=== PATIENT | male | born 1945 | race Caucasian/White ===

== ENCOUNTER 2021-06-30 10:34 | Emergency (ER) | payer OTHER, SELFPAY ==
[2021-06-30] VITALS (22 sets, daily range): BP systolic 142–179; BP diastolic 78–111; PULSE 84–114; RESP 12–25; TEMP 36.9; O2SAT 92–99
--- NOTE | ~2021-06-30 | XR_ITS ---
EXAMINATION: XR chest 2V DATE: 06/30/2021 10:47 INDICATION: 2 months of chest pain TECHNIQUE: PA and lateral views of the chest were obtained. COMPARISON: None FINDINGS: Negligible streaky atelectasis at the lingula. No other airspace opacities, pulmonary edema, pleural effusion or pneumothorax. The cardiomediastinal silhouette is normal. Mild to moderate thoracic spond ylosis. IMPRESSION: 1. Negligible lingular atelectasis. No other acute cardiopulmonary disease. Reviewed, dictated and finalized at location A.
--- NOTE | 2021-06-30 10:35 | ECG_ITS ---
Measurements Intervals [place] Rate: 81 P: 43 [place]: 160 QRS: 15 QRSD: 94 T: 29 QT: 354 QTc: 413 Interpretive Statements SINUS RHYTHM MINIMAL Q WAVES- INFERIOR LEADS BORDERLINE ECG Electronically Signed On 06-30-2021 11:11:51 CDT by Gonzalo Irvin D.O.
[2021-06-30 11:26] LABS: Basophils Percent Auto 0.5 % (0.2-1.2); Eosinophils Absolute Auto 0.1 K/mm3 (0-0.3); Eosinophils Percent Auto 1.3 % (0-4.4); Hematocrit 50.2 % (42.0-52.0); Hemoglobin 16.3 g/dL (14.0-18.0); Immature Granulocyte Absolute 0.04 K/mm3 (0.00-0.031); Immature Granulocyte Percent A 0.5 % (0-0.5); Lymphocytes Absolute Auto 1.68 K/mm3 (0.9-3.2); Lymphocytes Percent Auto 19.5 % (18.3-44.2); Mean Corpuscular HGB Conc 32.5 g/dl (32-36); Mean Corpuscular Hemoglobin 29.7 pg (26-34); Mean Corpuscular Volume 91.6 fl (80-100); Mean Platelet Volume 10.2 fl (7.4-10.4); Monocytes Absolute Auto 0.9 K/mm3 (0.1-0.6); Monocytes Percent Auto 10.2 % (2.6-8.5); Neutrophils Absolute Auto 5.9 K/mm3 (1.3-6.7); Platelet Count Result 206 k/mm3 (150-375); Red Blood Count 5.48 M/mm3 (4.6-6.20); Red Cell Distribution Width 13.1 % (11.5-14.5); White Blood Count 8.6 K/mm3 (4.5-10.0)
[2021-06-30 11:35] LABS: INR 0.9; Prothrombin Time 12.3 Seconds (11.1-14.7)
[2021-06-30 11:36] LABS: Partial Thromboplastin Time 26.4 SECONDS (22.3-36.8)
[2021-06-30 11:47] LABS: Anion Gap 9 mmol/L (8-16); Blood Urea Nitrogen 22 mg/dL (9-20); Calcium 9.3 mg/dL (8.4-10.2); Carbon Dioxide 26 mmol/L (22-30); Chloride 103 mmol/L (98-107); Estimated CRCL calculation 78 ml/min; Estimated Glomerular Filt Rate > 60; Glucose 101 mg/dL (65-110); Potassium 4.1 mmol/L (3.4-5.0); Sodium 138 mmol/L (137-145)
--- NOTE | 2021-06-30 12:00 | ED.CHESTPAIN ---
HPI - Chest Pain General Chief Complaint: Chest Pain Stated Complaint: SOB, CHEST TIGHTNESS Time Seen by Provider: 06/30/21 12:00 History of Present Illness HPI narrative: 75 yo male presents to the ED c/o shortness of breath. He reports that this started more than one month ago, but has only become significant recently. This is associated with chest tightness, orthopnea. No pain. No cough, congestion, fever, nausea, vomiting. This started after getting the Moderna vaccine for COVID-19. Related Data Allergies Allergy/AdvReac Type Severity Reaction Status Date / Time NA Allergy Unknown Uncoded 06/30/21 10:41 NONE Allergy Unknown Uncoded 04/24/03 13:12 Review of Systems Review of Systems: All systems reviewed & are unremarkable except as noted in HPI and below Constitutional: Constitutional: Denies chills Eyes: Eyes: Reports no additional eye complaints ENT: Reports system reviewed and no additional complaints, except as documented Cardiovascular: Cardiovascular: Denies chest pain and Denies leg edema Respiratory: Respiratory: Reports as per HPI Gastrointestinal: Gastrointestinal: Reports no additional gastrointestinal complaints Musculoskeletal: Musculoskeletal: Denies back pain Neurologic: Reports system reviewed and no additional complaints, except as documented [facility] Social History Social History Smoking status: Never smoker Alcohol intake: never Substance use: never Gender identity (if verbalized by the patient): Male Course Vital Signs Vital signs: Vital Signs Temperature 36.9 C 06/30/21 11:00 Pulse Rate 90 06/30/21 11:00 Respiratory Rate 20 06/30/21 11:00 Blood Pressure 179/111 H 06/30/21 11:00 Pulse Oximetry 97 06/30/21 11:00 Temperature 36.9 C 06/30/21 11:00 Pulse Rate 93 06/30/21 14:21 Respiratory Rate 20 06/30/21 14:21 Blood Pressure 142/98 H 06/30/21 14:21 Pulse Oximetry 92 06/30/21 14:21 MDM - Chest Pain MDM Narrative Medical decision making narrative: He has minimal elevated troponin, flat at 3 hours. Given that symptoms have been ongoing for a long time and he has no chest pain this is unlikely to represent an acute event. He has wheezing and reports significant symptom improvement with nebulizer treatment. Pointing to a pulmonary source for his symptoms. CXR negative for pneumonia. D-dimer normal. Elevated troponin is likely the result of untreated hypertension. Discussed with cardiology. They agree that he is not likely to benefit from hospitalization at this time. They will contact him for outpatient follow up. His PCP was contacted and agrees with the plan. She would like me to start him on and KAVIN-I for his BP. Differential Diagnosis Differential diagnosis: Likely stable angina, unstable angina pectoris, st elevation myocardial infarction, chest pain and other (pneumonia, COVID, asthma, COPD, PE) Medical Records Data Attestation: I reviewed the patient's medical records. Lab Data Attestation: I reviewed the patient's lab results. Result diagrams: 06/30/21 11:06 06/30/21 11:06 Labs: Lab Results 06/30/21 06/30/21 06/30/21 Range/Units 11:06 11:06 11:06 WBC 8.6 (4.5-10.0) K/mm3 RBC 5.48 (4.6-6.20) M/mm3 Hgb 16.3 (14.0-18.0) g/dL Hct 50.2 (42.0-52.0) % MCV 91.6 (80-100) fl MCH 29.7 (26-34) pg MCHC 32.5 (32-36) g/dl RDW 13.1 (11.5-14.5) % Plt Count 206 (150-375) k/mm3 MPV 10.2 (7.4-10.4) fl Immature Gran % (Auto) 0.5 (0-0.5) % Neut % (Auto) 68.0 (45.5-73.1) % Lymph % (Auto) 19.5 (18.3-44.2) % [place] % (Auto) 10.2 H (2.6-8.5) % Eos % (Auto) 1.3 (0-4.4) % Baso % (Auto) 0.5 (0.2-1.2) % Lymph # (Auto) 1.68 (0.9-3.2) K/mm3 [place] # (Auto) 0.9 H (0.1-0.6) K/mm3 Eos # (Auto) 0.1 (0-0.3) K/mm3 Baso # (Auto) 0.0 (0.0-0.1) K/mm3 Abs Immat Gran (auto) 0.04 H (0.00-
[2021-06-30 12:01] LABS: Troponin I 0.043 ng/mL (0.000-0.034)
[2021-06-30] MEDS: ASPIRIN 81 MG CHEWABLE TABLET 324 MG PO (12:17)
--- NOTE | 2021-06-30 12:17 | PC.NURSE ---
Patient reports taking 81mg Aspirin [employer].
[2021-06-30] MEDS: ALBUTEROL SULFATE NEB 2.5 MG/0.5 ML INH 5 MG INHALATION (12:21)
[2021-06-30] MEDS: IPRATROPIUM BR 0.02% INH SOLN 0.5 MG/2.5 ML VIAL INHALATION (12:21)
[2021-06-30 13:10] LABS: NT Pro B Type Natriuretic Pept 50 pg/mL (5-100)
[2021-06-30 13:12] LABS: D Dimer 0.27 ug/mL (<0.48)
[2021-06-30 14:17] LABS: Troponin I 0.037 ng/mL (0.000-0.034)
[2021-06-30] MEDS: predniSONE 20 MG TABLET 40 MG PO (15:13)
== END 2021-06-30 15:16 | disposition home or self-care (01) ==
PROVIDERS: Emergency Medicine; Emergency Provider Emergency Medicine; PCP Physician Assistant
DX: R06.02 Shortness of breath (principal); I10 Essential (primary) hypertension; R79.89 Other specified abnormal findings of blood chemistry; R94.31 Abnormal electrocardiogram [ECG] [EKG]
CPT/HCPCS: 36415; 71046; 80048; 83880; 84484; 85025; 85380; 85610; 85730; 93005; 94640; 99284; A9270; J7512

== ENCOUNTER 2021-06-30 19:42 | Inpatient (IN) | payer OTHER, SELFPAY ==
[2021-06-30 19:56] VITALS: BP 185/89; PULSE 104; RESP 20; TEMP 37.2; O2SAT 98
--- NOTE | 2021-06-30 20:01 | ECG_ITS ---
Measurements Intervals [place] Rate: 101 P: 40 [place]: 168 QRS: 23 QRSD: 82 T: 54 QT: 342 QTc: 443 Interpretive Statements SINUS TACHYCARDIA EARLY PRECORDIAL R/S TRANSITION MINIMAL Q WAVES- INFERIOR LEADS BASELINE ARTIFACT- I, III, AVL BORDERLINE ECG Electronically Signed On 06-30-2021 20:09:57 CDT by Gonzalo Irvin D.O.
[2021-06-30 20:44] LABS: Basophils Percent Auto 0.2 % (0.2-1.2); Eosinophils Percent Auto 0.1 % (0-4.4); Hematocrit 49.1 % (42.0-52.0); Hemoglobin 16.6 g/dL (14.0-18.0); Immature Granulocyte Absolute 0.07 K/mm3 (0.00-0.031); Immature Granulocyte Percent A 0.6 % (0-0.5); Lymphocytes Absolute Auto 0.64 K/mm3 (0.9-3.2); Lymphocytes Percent Auto 5.5 % (18.3-44.2); Mean Corpuscular HGB Conc 33.8 g/dl (32-36); Mean Corpuscular Hemoglobin 30.9 pg (26-34); Mean Corpuscular Volume 91.3 fl (80-100); Mean Platelet Volume 9.7 fl (7.4-10.4); Monocytes Absolute Auto 0.2 K/mm3 (0.1-0.6); Monocytes Percent Auto 1.6 % (2.6-8.5); Neutrophils Absolute Auto 10.8 K/mm3 (1.3-6.7); Platelet Count Result 193 k/mm3 (150-375); Red Blood Count 5.38 M/mm3 (4.6-6.20); Red Cell Distribution Width 13.2 % (11.5-14.5); White Blood Count 11.7 K/mm3 (4.5-10.0)
[2021-06-30 20:53] LABS: Prothrombin Time 12.7 Seconds (11.1-14.7)
[2021-06-30 20:54] LABS: Anion Gap 15 mmol/L (8-16); Blood Urea Nitrogen 21 mg/dL (9-20); Calcium 9.5 mg/dL (8.4-10.2); Carbon Dioxide 18 mmol/L (22-30); Chloride 102 mmol/L (98-107); Estimated CRCL calculation 77 ml/min; Estimated Glomerular Filt Rate > 60; Glucose 165 mg/dL (65-110); Partial Thromboplastin Time 25.5 SECONDS (22.3-36.8); Potassium 3.6 mmol/L (3.4-5.0); Sodium 135 mmol/L (137-145)
[2021-06-30 21:07] LABS: Troponin I 0.073 ng/mL (0.000-0.034)
[2021-06-30 21:52] VITALS: BP 178/97; PULSE 106; RESP 14; TEMP 36.9; O2SAT 95
--- NOTE | 2021-06-30 22:46 | ED.GENADULT ---
HPI - General Adult General Chief complaint: Shortness of Breath/Dyspnea Stated complaint: SOB Time Seen by Provider: 06/30/21 21:50 History of Present Illness HPI narrative: Patient is a 75-year-old male who presents ER with chest tightness and shortness of breath. Reports began a couple months ago when he would walk to get his mail. He reports now he develops the symptoms anytime he walks around his apartment. He does walk from 1 room to another will take about 10 to 15 minutes to recover and for his chest tightness to go away. Initially it would take less than a minute for symptoms to go away. Denies diaphoresis/nausea. No radiation to the arm or neck. Reports family history of coronary disease as his father had open heart surgery in his 60s. Patient was seen earlier in the day with 2 mildly elevated troponins. After consultation with PCP and cardiology is determined patient could be worked up outpatient. After getting home patient apparently had an episode where he had brief loss of consciousness with apnea at his kitchen table as reported by a family member who is present. They then called an ambulance and sent back to the ER. Patient has no chest pain at this time but does endorse orthopnea and tightness with exertion. He did fill lisinopril that was prescribed earlier but his blood pressure still is running in the 170s to 180s systolic and he has not yet taken the medication. Patient denies any lower extremity edema, prolonged immobilization, hemoptysis. D-dimer earlier in the day was negative. Related Data Allergies Allergy/AdvReac Type Severity Reaction Status Date / Time NA Allergy Unknown Uncoded 06/30/21 10:41 NONE Allergy Unknown Uncoded 04/24/03 13:12 Review of Systems Review of Systems: All systems reviewed & are unremarkable except as noted in HPI and below Constitutional: Constitutional: Denies chills, Reports fatigue and Denies fever(s) ENT: Denies nasal congestion and Denies sore throat Cardiovascular: Cardiovascular: Reports chest pain, Denies rapid heart rate and Denies radiating jaw, neck or arm pain Respiratory: Respiratory: Denies cough, Reports dyspnea and Denies wheezing Comments: +Orthopnea Gastrointestinal: Gastrointestinal: Denies abdominal pain, Denies nausea and Denies vomiting Musculoskeletal: Musculoskeletal: Denies joint swelling and Denies muscle cramps PMFSH Social History Social History Smoking status: Never smoker Alcohol intake: never Substance use: never Gender identity (if verbalized by the patient): Male Exam Narrative: GENERAL: Well-appearing, well-nourished, and in no acute distress. HEAD: Normocephalic, atraumatic. ENT: Mucous membranes moist. CHEST: Clear to auscultation. No respiratory distress. HEART: Regular rate and rhythm. Faint murmur right upper sternal border. Normal peripheral pulses.. EXTREMITIES: Normal range of motion. No edema. SKIN: Warm, dry, no rash. NEURO: Alert and oriented x3. PSYCH: Normal mood and affect. Course Course Emergency Course: Patient informed of results. Admit to hospitalist service with cardiology consulting. After discussing with cardiology patient has been started on 25 mg metoprolol and 1 dose of Lovenox. We'll continue to trend troponins which was 0.073, elevated compared to previous troponins. Patient chest pain-free at this time. Vital Signs Vital signs: Vital Signs Temperature 98.9 F 06/30/21 19:56 Pulse Rate 104 H 06/30/21 19:56 Respiratory Rate 20 06/30/21 19:56 Blood Pressure 185/89 H 06/30/21 19:56 Pulse Oximetry 98 06/30/21 19:56 Temperature 98.5 F 06/30/21 21:52 Pulse Rate 108 H 06/30/21 22:48 Respiratory Rate 15 06/30/21 22:47 Blood Pressure 182/93 H 06/30/21 22:47 Pulse Oximetry 95 06/30/21 22:47 Medical Decision Making Vital Signs Vital Signs: Vital Signs Temperature 98.9 F 06/30/21 19:56 Pulse Rate 104 H 06/30/21 19:5
[2021-06-30 22:47] VITALS: BP 182/93; PULSE 111; RESP 15; O2SAT 95
[2021-06-30 22:48] VITALS: PULSE 108
[2021-06-30] MEDS: METOPROLOL TARTRATE 25 MG TABLET PO (22:48)
[2021-06-30] MEDS: ENOXAPARIN 100 MG/ML SYRINGE 95 MG SUB-Q (23:20)
[2021-06-30 23:22] LABS: NT Pro B Type Natriuretic Pept 263 pg/mL (5-100)
[2021-06-30 23:56] LABS: Troponin I 0.296 ng/mL (0.000-0.034)
[2021-07-01] VITALS (22 sets, daily range): BP systolic 103–171; BP diastolic 57–103; PULSE 74–108; RESP 15–20; TEMP 36.2–37.2; O2SAT 92–100; BMI 32.8
--- NOTE | 2021-07-01 | ECHO_ITS ---
Patient Info Name: Luis Daniel Liriano Age: 75 years : 1945 Gender: Male Ht: 66 in Wt: 203 lbs BSA: 2.10 m2 HR: 81 bpm BP: 171 / 92 mmHg Heart Rhythm: Sinus Rhythm Exam Date: 07/01/2021 9:12 AM Exam Location: [facility] Patient Status: Inpatient Admit Date: 06/30/2021 Staff Ordering Physician: Ozzy Senior MD Lab Technologist: Simon Das, SHIREEN, RT Attending Provider: Monty Arias MD Exam Type: CA echo dop color flow w con Study Info Complete two-dimensional, color flow and Doppler transthoracic echocardiogram is performed with contrast to opacify the left ventricle and to improve the deliniation of the left ventricle endocardial borders. Strain analysis performed. Summary 1. Normal LV size, mild LVH, sigmoid hypertrophy. Normal overall LV systolic function, ejection fraction measured at 70% with segmental wall motion abnormality. Grade 1 diastolic dysfunction. Anteroseptal, mid anterior, and apical septal segments are hypokinetic. Normal mitral valve structure, trivial MR. Mild aortic valve sclerosis, no stenosis. Trace TR, mild pulmonary hypertension, RVSP 41 mmHg. Normal sinus rhythm. Left Ventricle Left ventricular chamber dimension is normal. There is mildly increased left ventricular wall thickness. The left ventricular diastolic function is grade I diastolic dysfunction. Right Ventricle Right ventricular chamber dimension is normal. Right ventricular systolic function is normal. Left Atria Left atrial chamber dimension is normal. Right Atria Right atrial chamber dimension is normal. Aortic Valve There is mild aortic valve sclerosis. There is no aortic valve stenosis. Pulmonic Valve The pulmonic valve is normal. There is mild pulmonic regurgitation. Mitral Valve The mitral valve has normal leaflets. There is trace mitral valve regurgitation. Tricuspid Valve The tricuspid valve leaflets are normal. There is trace tricuspid valve regurgitation. Mild pulmonary hypertension, estimated pulmonary arterial systolic pressure is 41 mmHg. Pericardium/Pleural The pericardium appears epicardial fat pad. There is trivial pericardial effusion. Aorta The aortic root size at the sinus of Valsalva is normal. Left Ventricular Outflow Tract Name Value Normal LVOT Doppler LVOT Peak Gradient 7 mmHg LVOT Mean Gradient 4 mmHg LVOT VTI 25.61 cm LVOT VTI/AV VTI Ratio 0.82 Tricuspid Valve Name Value Normal TV Regurgitation Doppler TR Peak Velocity 278.06 cm/s TR Peak Gradient 31 mmHg Estimated PAP/RSVP RA Pressure 10 mmHg <=5 PA Systolic Pressure 41 mmHg <36 RV Systolic Pressure 41 mmHg <36 TV Diastolic Function
--- NOTE | 2021-07-01 00:56 | PM.IMHP ---
H&P: HPI History of Present Illness Date/Time: 07/01/21 00:56 Chief Complaint: Shortness of breath Narrative: This is a 75-year-old male who presents to the ER with chest tightness and shortness of breath that started since past couple months. Shortness of breath his related to exertion. It will recover with rest. He denies any overt chest pain associated with it with no diaphoresis/nausea/radiation. No prior history of coronary artery disease however does report family history of coronary artery disease with his father having open heart surgery in his 60s. He states his shortness of breath gets worse at night when lays flat. He does does report history of hypertension which has not been well controlled. He was seen for the similar symptoms earlier today and was noted to have mildly elevated troponin. After consultation with PCP and Cardiology was plan to have him worked up as an outpatient basis. However after reaching home he had similar symptom of worsening shortness of breath and had to come right back to the ER. He has been consulted with Cardiology and this time in the EKG has noticed some ST-T depressions in septal leads and hence plan to get admitted after consultation with Cardiology Review of Systems Review of Systems: - CONSTITUTIONAL: Denies weight loss, fever and chills. - HEENT: Denies changes in vision and hearing - RESPIRATORY: Reports SOB and denies cough. - CV: Reports palpitations and denies CP. - GI: Denies abdominal pain, nausea, vomiting and diarrhea. - : Denies dysuria and urinary frequency. - MSK: Denies myalgia and joint pain. - SKIN: Denies rash and pruritus. - NEUROLOGICAL: Denies headache and syncope. - PSYCHIATRIC: Denies recent changes in mood. Denies anxiety and depression. All systems reviewed & are unremarkable except as noted in HPI and below Constitutional: Constitutional: Reports fatigue and Reports weakness Neurologic: Reports weakness Endocrine: Endocrine: Reports fatigue [facility] Social History Social History Smoking status: Never smoker Alcohol intake: never Substance use: never Gender identity (if verbalized by the patient): Male Meds Home Medications and Allergies Home Medications Medication Instructions Recorded Confirmed Type albuterol sulfate 2 puff INHALATION QID PRN #8.5 g 06/30/21 Rx lisinopril 20 mg PO DAILY #30 tablet 06/30/21 Rx prednisone 40 mg PO DAILY 4 Days #8 tablet 06/30/21 Rx Allergies Allergy/AdvReac Type Severity Reaction Status Date / Time NA Allergy Unknown Uncoded 06/30/21 10:41 NONE Allergy Unknown Uncoded 04/24/03 13:12 Vital Signs Vital Signs - 24 hr 06/30/21 19:56 06/30/21 21:52 06/30/21 22:47 Temperature 98.9 F 98.5 F Pulse Rate 104 H 106 H 111 H Respiratory Rate 20 14 15 Blood Pressure 185/89 H 178/97 H 182/93 H Pulse Oximetry 98 95 95 06/30/21 22:48 07/01/21 00:20 Temperature Pulse Rate 108 H 85 Respiratory Rate 16 Blood Pressure 143/93 H Pulse Oximetry 96 Exam Narrative: GENERAL: The patient is morbidly obese, not in acute distress HEENT: Nonicteric sclerae, PERRLA, EOMI. Oropharynx clear. Moist mucous membranes. Conjunctivae appear well perfused. CHEST: Chest wall is nontender. HEART: Regular rate and rhythm without murmur, rubs, or gallops LUNGS: Clear to auscultation bilaterally. no respiratory distress ABDOMEN: Soft, positive bowel sounds, non-tender, no organomegaly. SKIN: No rash, no excessive bruising, petechiae, or purpura. NEUROLOGIC: Cranial nerves II-XII intact, alert and oriented x 3, no gross motor deficits EXTREMITIES: 1+ edema bilateral lower extremities, no cyanosis or clubbing Extrem: General: normal exam except as noted and no edema H&P: Results Labs Labs: Short CBC 06/30/21 06/30/21 Range/Units 20:33 20:33 WBC 11.7 H (4.5-10.0) K/mm3 Hgb 16.6 (14.0-18.0) g/dL Hct 49.1 (42.0-52.0)
--- NOTE | 2021-07-01 02:03 | PC.NURSE ---
This patient, Luis Daniel Liriano, was admitted to IMU Room 206-01 on 07/01/21 at 0200. Patient/family oriented to hospital policies and general routines including ID bracelet, bed and alarms, visiting hours, pain management, procedures, bathroom and other care routines, personal items, smoking policy, room service/diet, and visiting hours. Information on how to activate the Rapid Response Team has been discussed. Patient/Family are encouraged to report perceived risks to care and to ask questions if they do not understand what they are told or what they should do.
[2021-07-01 02:40] LABS: Cholesterol 323 mg/dL (0-200); HDL Direct 39 mg/dL; Triglycerides 178 mg/dL (<150)
[2021-07-01 02:51] LABS: LDL Cholesterol Direct 224 mg/dL
[2021-07-01 03:37] LABS: Hemoglobin A1C 5.8 % (<5.7)
[2021-07-01] MEDS: ASPIRIN 81 MG CHEWABLE TABLET 324 MG PO (04:10)
--- NOTE | 2021-07-01 08:23 | PM.CNCAR ---
Assessment and Plan Assessment and plan (1) Non-ST elevation NH (NSTEMI): Code(s): I21.4 - Non-ST elevation (NSTEMI) myocardial infarction Status: Acute Assessment and Plan: 75-year-old male with history of poorly controlled hypertension. He presents to the hospital with progressive worsening shortness of breath and chest discomfort for approximately 2 months. Initial EKG did not show any acute ST segment abnormality, subsequent EKG showed subtle ST depression in the lateral leads. Troponins are elevated with upward trend. Clinical presentation consistent with CHF and non ST-elevation NH. -standard treatment for ACS will be initiated including aspirin; beta-marilee, continuation of lisinopril, and initiation of statin. After discussing benefits risks and alternatives, patient is willing to proceed with a invasive strategy with cardiac catheterization to rule out significant obstructive CAD, with an eye towards intervention as necessary. -echocardiogram with Doppler will be performed. (2) Hypertension: Code(s): I10 - Essential (primary) hypertension Status: Acute Assessment and Plan: Patient initiated on beta-marilee, resume lisinopril. Monitor blood pressure. Diuresis as necessary. No significant volume overload at present on physical examination. History of Present Illness History of Present Illness Consult date/time: 07/01/21 08:23 DATE OF CONSULT: 07/01/2021 REASON FOR CONSULT: Chest pain, elevated troponin REQUESTING PHYSICIAN:Godfrey Mark MD CHIEF COMPLAINT: Shortness of breath, chest tightness HPI: 75-year-old male with hypertension; no known prior cardiac history. Patient presented to [facility] on 06/[facility]/2021 with progressively worsening shortness of breath and chest discomfort for approximately 2 months. He says that his symptoms started gradually, and more recently, he is able to walk very limited distance in the house before he gets short of breath. His symptoms are associated with chest pressure, which gets better after rest. He denies any palpitation, dizziness or syncope. No PND, orthopnea or lower extremity swelling. There is no known prior cardiac history including clinical NH, angina, heart failure or any arrhythmias. Initial EKG on presentation on my personal evaluation shows sinus rhythm, no acute ST segment abnormality. Subsequent EKG showed subtle ST depression in the lateral leads. Troponins at admission were 0.043, trending upwards, current troponin level 1.5. BNP mildly elevated to 263. Chest x-ray shows lingular atelectasis. No other acute cardiopulmonary disease. Reason For Visit: Chest Pain, Elevated Troponin Review of Systems Review of Systems: General: Negative for fever, chills, fatigue Psychological: Negative for anxiety, depression Ophthalmic: negative for loss of vision ENT: Negative for epistaxis, headaches Allergy and immunology: Negative for hives, nasal congestion Hematologic and lymphatic: Negative for overt bleeding problems Endocrine: Negative for hot flashes, palpitations Respiratory: Negative for cough, hemoptysis Cardiovascular: Positive for worsening shortness of breath and chest pressure Gastrointestinal: Negative for abdominal pain Musculoskeletal: Negative for myalgia, joint pains Neurological: Negative for weakness Dermatological: Negative for rash, skin discoloration PMFSH Past Medical History Medical History (Updated 07/01/21 @ 08:53 by Ozzy Senior MD) Hypertension Surgical History Surgical History (Updated 07/01/21 @ 08:51 by Ozzy Senior MD) H/O hernia repair Family History Family History Father Coronary artery disease Mother Dementia Sibling Lymphoma Social History Social History Smoking status: Never smoker Second hand tobacco smoke exposure: No Alcohol intake: never Substance use: never
--- NOTE | 2021-07-01 08:56 | WPDMODSED ---
Moderate Sedation Note-Pt Data Patient Data Allergies Allergy/AdvReac Type Severity Reaction Status Date / Time No Known Allergies Allergy Verified 07/01/21 01:53 Home Medications Medication Instructions Recorded Confirmed Type albuterol sulfate 2 puff INHALATION QID PRN #8.5 g 06/30/21 07/01/21 Rx lisinopril 20 mg PO DAILY #30 tablet 06/30/21 07/01/21 Rx prednisone 40 mg PO DAILY 4 Days #8 tablet 06/30/21 07/01/21 Rx Current Medications: Active Medications Aspirin (Aspirin 81 Mg Enteric Tablet) 81 mg PO QAM LINSEY Atorvastatin Calcium (Atorvastatin 40 Mg Tablet) 80 mg PO HS LINSEY Lisinopril (Lisinopril 20 Mg Tablet) 20 mg PO QAM LINSEY Metoprolol Succinate (Metoprolol Succinate Ext Rel 25 Mg Tabcr) 25 mg PO QAM LINSEY Morphine Sulfate (Morphine Sulfate (*Crx) 4 Mg/Ml Inj) 4 mg IV PUSH Q2H PRN PRN Reason: Pain Rated 7-10 Ondansetron HCl (Ondansetron Inj 4 Mg/2 Ml Vial) 4 mg IV PUSH Q4H PRN PRN Reason: Nausea Sedation/Anesthesia: No previous sedation/anesthesia problems (including family history). [facility] Past Medical History Medical History (Updated 07/01/21 @ 08:53 by Ozzy Senior MD) Hypertension Surgical History Surgical History (Updated 07/01/21 @ 08:51 by Ozzy Senior MD) H/O hernia repair Family History Family History Father Coronary artery disease Mother Dementia Sibling Lymphoma Social History Social History Smoking status: Never smoker Second hand tobacco smoke exposure: No Alcohol intake: never Substance use: never Gender identity (if verbalized by the patient): Male Spiritual care concerns: No Mod Sed Physical Exam Physical Exam Pre Procedural Exam: Normal: Airway Hours since solid foods: 10 Hours since liquid intake: 10 Mallampati Classification: class 1 Internal Medicine - PN: Obj Da Vital Signs Vital Signs: Vital Signs - 24 hr 06/30/21 19:56 06/30/21 21:52 06/30/21 22:47 Temperature 37.2 C 36.9 C Pulse Rate 104 H 106 H 111 H Respiratory Rate 20 14 15 Blood Pressure 185/89 H 178/97 H 182/93 H Pulse Oximetry 98 95 95 06/30/21 22:48 07/01/21 00:20 07/01/21 02:00 Temperature 36.2 C L Pulse Rate 108 H 85 84 Respiratory Rate 16 20 Blood Pressure 143/93 H 125/103 H Pulse Oximetry 96 100 07/01/21 02:07 07/01/21 04:00 07/01/21 05:00 Temperature 36.2 C L 36.7 C Pulse Rate 84 78 82 Respiratory Rate 20 18 Blood Pressure 125/103 H 138/83 Pulse Oximetry 100 99 07/01/21 05:49 07/01/21 07:10 Temperature 36.5 C Pulse Rate 74 95 Respiratory Rate 18 Blood Pressure 171/92 H Pulse Oximetry 96 Intake/Output Intake/Output: Intake & Output 06/28/21 06/29/21 06/30/21 07/01/21 23:59 23:59 23:59 23:59 Intake Total 0 Balance 0 Meds/Results Medications: Active Medications Generic Name Dose Route Start Last Admin Trade Name Fre PRN Reason Stop Dose Admin Aspirin 81 mg 07/01/21 09:00 Aspirin 81 Mg [facility] [place] Atorvastatin Calcium 80 mg 07/01/21 21:00 Atorvastatin 40 Mg Tablet PO HS [facility] Lisinopril 20 mg 07/01/21 09:00 Lisinopril 20 Mg [facility]t [facility] [place] Metoprolol Succinate 25 mg 07/01/21 09:00 Metoprolol Succinate Ext Rel 25 Mg Tabcr PO [facility] Morphine Sulfate 4 mg 06/30/21 23:54 Morphine Sulfate (*Crx) 4 Mg/Ml Inj IV PUSH Q2H PRN Pain Rated 7-10 Ondansetron HCl 4 mg 06/30/21 23:54 Ondansetron Inj 4 Mg/2 Ml Vial IV PUSH Q4H PRN Nausea Labs CBC & Chem 7: 06/30/21 20:33 06/30/21 20:33 Labs: Laboratory Results - last 24 hr 06/30/21 06/30/21 06/30/21 20:33 20:33 20:33 WBC 11.7 H RBC 5.38 Hgb 16.6 Hct 49.1 MCV 91.3 MCH 30.9 MCHC 33.8 RDW 13.2 Plt Count 193 MPV 9.7 Immature Gran % (Auto) 0.6 H Neut % (Auto) 92.0 H Lymph % (Auto) 5.5 L [place]
[2021-07-01] MEDS: ASPIRIN 81 MG ENTERIC TABLET PO (09:33)
--- NOTE | 2021-07-01 11:12 | WPDCARDPROC ---
Cardiac Cath Procedure Note Date of procedure:: 07/01/21 Performing physician:: Ozzy Senior MD Procedure Procedure note:: CARDIAC CATHETERIZATION AND PERCUTANEOUS CORONARY INTERVENTION REPORT DATE OF PROCEDURE: 07/01/2021 INDICATION FOR PROCEDURE: Non ST-elevation myocardial infarction BRIEF CLINICAL HISTORY:75-year-old male with history of poorly controlled hypertension. He presented to [facility] on 06/30/2021 with progressive worsening shortness of breath and chest discomfort for approximately 2 months. Initial EKG did not show any acute ST segment abnormality, subsequent EKG showed subtle ST depression in the lateral leads. Troponins were elevated with upward trend. Clinical presentation consistent with non ST-elevation NC. Early invasive strategy with coronary angiogram with an eye towards intervention was recommended. Benefits and risks of the procedure were discussed with the patient in depth, and informed consent was obtained prior to the procedure. Risks of the procedure include but are not limited to vascular complications including groin hematoma, retroperitoneal bleed, vessel perforation; periprocedural NC, cardiac arrhythmias, stroke, contrast induced nephropathy, and . After discussing all the benefits, risks and alternatives, patient was willing to proceed with the procedure. PROCEDURES PERFORMED: 1. Left heart catheterization- Selective left and right coronary angiogram; left ventriculogram and hemodynamic assessment 2. Multivessel Percutaneous coronary intervention- a) balloon angioplasty and stenting of high-grade stenosis in the proximal-mid LAD using a 3.5 x 35 mm Biotronik sirolimus eluting stent with sikhism of KIM 3 flow; b) Stenting of proximal left circumflex artery using a 5.0 x 15 mm resolute gonzalo Zotarolimus eluting stent (ZES) 3. Selective right common femoral angiogram and deployment of Angio-Seal hemostatic device 4. Moderate sedation-CPT code 83753 MODERATE SEDATION: Midazolam 2 mg; fentanyl 50 mcg. Start time 1004 , Stop time 1108 ; Total [id number] time 64 minutes; David Gerard RN was trained observer for moderate sedation. ACCESS SITE: Right common femoral artery PROCEDURE NOTE: After obtaining informed consent, patient was brought to catheterization lab and prepped and draped in a usual sterile manner. After local anesthesia with lidocaine, right common femoral artery access was taken with micropuncture needle followed by insertion of a 6 [place] sheath. Selective left and right coronary angiogram was performed using 5 [place] JL4 and JR4 catheters respectively. Orthogonal views were taken. Next, a 5 [place] pigtail catheter was advanced in the LV cavity and was flushed with normal saline. LV pressure measurement was performed. After this, left ventriculogram was performed. The catheter was flushed again, and gradient across the aortic valve was measured on the pullback of the catheter. Selective right common femoral angiogram was performed after PCI followed by successful deployment of Angio-Seal vascular closure device. Patient tolerated procedure well without any immediate procedure related complications. FINDINGS: LEFT MAIN CORONARY: the left main coronary artery is a large caliber vessel with minor irregularities in the distal segment. The vessel bifurcates into LAD and left circumflex branches. LEFT ANTERIOR DESCENDING ARTERY: The LAD is a medium to large caliber vessel in the proximal most segment with severe atherosclerosis. There is high-grade about 90% diffuse, hazy stenosis in the lower part of the proximal segment and upper part of the mid segment. The remainder of the mid LAD is without significant focal stenosis. The vessel tapers distally and reaches LV apex. Before intervention, there was KIM 1 flow, which improved to KIM 3 flow post intervention. The diagonal branches are small to medium caliber vessel. LEFT CIRCUMFLEX ARTERY: The left circumfle
[2021-07-01] MEDS: lisinopriL 20 MG TABLET PO (12:48)
[2021-07-01] MEDS: SODIUM CHLORIDE 0.9% IV 1,000 ML 125 ML IV CONT (13:00)
--- NOTE | 2021-07-01 16:05 | PM.IMPN ---
Progress Note: A&P Assessment and Plan (1) Non-ST elevation [place] (NSTEMI): Code(s): I21.4 - Non-ST elevation (NSTEMI) myocardial infarction Status: Acute (2) CAD (coronary artery disease): Code(s): I25.10 - Atherosclerotic heart disease of [place] coronary artery without angina pectoris Status: Acute (3) Hypertension: Code(s): I10 - Essential (primary) hypertension Status: Acute (4) Hyperlipidemia: Code(s): E78.5 - Hyperlipidemia, unspecified Status: Acute (5) DVT prophylaxis: Code(s): Z29.9 - Encounter for prophylactic measures, unspecified Status: Acute Assessment and Plan: SCDs Additional Plan Patient presents with exertional shortness of breath worrisome for underlying coronary artery disease. Troponin elevated to 1.[address] elevation [place]. Initial EKG showing minimal Q waves in lateral leads. CXR was clear. Echo showing EF 70% with grade I diastolic dysfunction and no wall motion abnormalities. Started on ASA, Metoprolol and Lovenox and admitted to IMU. Cardiology was consulted. LDL 224 and Chol 323. Atorvastatin started. Glucose mildly elevated on admission but A1c was 5.8. D-dimer was negative. Was seen in the ED on 06/30 for SOB and noted to be wheezing and started on Prednisone; wheezing has resolved. BP elevated on admission but better controlled now. Patient underwent C today showing multivessel CAD. He underwent balloon angioplasty and stenting of high-grade stenosis in the proximal-mid LAD and stenting of proximal left circumflex artery. He tolerated this procedure well. Continue aggressive medial management. Patient educated about the importance of taking Brilinta and ASA and the risk of not doing so including AMI and even . Also discussed the benefits of leading a healthy lifestyle. Subjective Date/time seen: 07/01/21 16:05 Interval history: 75yo male with HTN here for SOB and CP. Patient back from [facility]. He feels well. no complaints. No wheezing. No CP or SOB. Eating okay. Has known hyperchol but has refused statin therapy in the past. Exam Narrative: AF 97.1 120/67 88 16 97% ra Gen - NARD Chest - CTA bilaterally, nml RR CV - RRR S1/S2; Tele showing no significant dysrhythmias Abd - Soft, NT/ND, Positive BS Ext - No pedal edema. right groin site clean and dry without hematoma Neuro - Alert and oriented. Nonfocal exam. Psych - Nml mood and affect Skin - Warm and dry Objective Data Vital Signs Vital Signs: Vital Signs - 24 hr 06/30/21 19:56 06/30/21 21:52 06/30/21 22:47 Temperature 98.9 F 98.5 F Pulse Rate 104 H 106 H 111 H Respiratory Rate 20 14 15 Blood Pressure 185/89 H 178/97 H 182/93 H Pulse Oximetry 98 95 95 06/30/21 22:48 07/01/21 00:20 07/01/21 02:00 Temperature 97.1 F L Pulse Rate 108 H 85 84 Respiratory Rate 16 20 Blood Pressure 143/93 H 125/103 H Pulse Oximetry 96 100 07/01/21 02:07 07/01/21 04:00 07/01/21 05:00 Temperature 97.1 F L 98.0 F Pulse Rate 84 78 82 Respiratory Rate 20 18 Blood Pressure 125/103 H 138/83 Pulse Oximetry 100 99 07/01/21 05:49 07/01/21 07:10 07/01/21 08:00 Temperature 97.7 F Pulse Rate 74 95 82 Respiratory Rate 18 Blood Pressure 171/92 H Pulse Oximetry 96 07/01/21 10:00 07/01/21 11:20 07/01/21 11:30 Temperature 98.1 F Pulse Rate 85 97 87 Respiratory Rate 15 17 Blood Pressure 114/72 116/79 Pulse Oximetry 92 96 07/01/21 11:45 07/01/21 12:00 07/01/21 12:13 Temperature Pulse Rate 88 89 88 Respiratory Rate 16 17 17 Blood Pressure 115/78 103/79 122/78 Pulse Oximetry 93 98 96 07/01/21 13:10 07/01/21 14:00 Temperature 97.1 F L Pulse Rate 108 H 88 Respiratory Rate 16 Blood Pressure 120/67 Pulse Oximetry 97 Intake/Output Intake/Output: Intake & Output 06/28/21 06/29/21 06/30/21 07/01/21 23:59 23:59 23:59 23:59 Intake Total 0 Output Total 400 Balance -400 Meds/Result
[2021-07-01] MEDS: ATORVASTATIN 40 MG TABLET 80 MG PO (20:40)
[2021-07-01] MEDS: TICAGRELOR 90 MG TABLET PO (20:40)
[2021-07-02] VITALS (10 sets, daily range): BP systolic 104–141; BP diastolic 54–77; PULSE 71–105; RESP 20; TEMP 36.7; O2SAT 97–100
[2021-07-02 05:41] LABS: Anion Gap 9 mmol/L (8-16); Blood Urea Nitrogen 29 mg/dL (9-20); Calcium 8.9 mg/dL (8.4-10.2); Carbon Dioxide 28 mmol/L (22-30); Chloride 102 mmol/L (98-107); Estimated CRCL calculation 57 ml/min; Estimated Glomerular Filt Rate > 60; Glucose 100 mg/dL (65-110); Sodium 139 mmol/L (137-145)
[2021-07-02] MEDS: ASPIRIN 81 MG ENTERIC TABLET PO (08:48)
[2021-07-02] MEDS: METOPROLOL SUCCINATE EXT REL 50 MG TABCR PO (08:48)
[2021-07-02] MEDS: TICAGRELOR 90 MG TABLET PO (08:49)
[2021-07-02] MEDS: lisinopriL 20 MG TABLET PO (08:49)
--- NOTE | 2021-07-02 11:56 | PM.PNCARD ---
Progress Note: A&P Assessment and Plan (1) Non-ST elevation [place] (NSTEMI): Code(s): I21.4 - Non-ST elevation (NSTEMI) myocardial infarction Status: Acute Assessment and Plan: Status post drug-eluting stent to high-grade 90% LAD hazy stenosis 3.5 x 35 mm and 0.0 x 15 mm drug-eluting stent to large circumflex 70% stenosis. Residual 60-70% stenosis with recommendations to manage medically. Continue dual antiplatelet therapy, statin, KAVIN-inhibitor, beta-marilee. Counseled the importance of compliance recommendation, medications and follow-up specifically not to miss a single dose of his aspirin and or Brilinta so as to not increased risk for myocardial infarction and or other complications. Patient agrees. Patient doing very well without complication post intervention. He will follow with Dr. Senior as an outpatient. Cardiac rehabilitation as an outpatient advised. Reviewed post catheterization and DE precautions in great detail. All questions answered. Patient stable for discharge home. Counseled to monitor for bleeding. Counseled on side effects with shortness of breath potential with Brilinta. Counseled on when to call the office with chest pain, fevers, chills, hematoma/bleeding, worsening pain, exertional dyspnea. (2) Hypertension: Code(s): I10 - Essential (primary) hypertension Status: Acute Assessment and Plan: Better controlled. Patient initiated on beta-marilee, lisinopril. Monitor blood pressure. Subjective Date/time seen: Date of Service: 07/02/21 11:56 Follow-up for NSTEMI Patient feels very well. He is very grateful for the care he has received. He feels fantastic no chest pain, shortness of breath, dizziness. No leg pain. Tolerating medications. No new issues overnight. Review of Systems Review of Systems: All systems reviewed & are unremarkable except as noted in HPI and below Constitutional: Constitutional: Reports as per HPI and Reports no additional constitutional complaints Eyes: Eyes: Reports as per HPI and Reports no additional eye complaints ENT: Reports system reviewed and no additional complaints, except as documented and Reports as per HPI Cardiovascular: Cardiovascular: Reports as per HPI and Reports no additional cardiovascular complaints Respiratory: Respiratory: Reports as per HPI and Reports no additional respiratory complaints Gastrointestinal: Gastrointestinal: Reports as per HPI and Reports no additional gastrointestinal complaints Genitourinary: Genitourinary: Reports no additional male genitourinary complaints and Reports as per HPI Musculoskeletal: Musculoskeletal: Reports no additional musculoskeletal complaints and Reports as per HPI Integumentary/Breasts: Skin/Breast: Reports system reviewed and no additional complaints, except as docu and Reports as per HPI Neurologic: Reports system reviewed and no additional complaints, except as documented and Reports as per HPI Psychiatric: Psychiatric: Reports no additional psychiatric complaints and Reports as per HPI Endocrine: Endocrine: Reports no additional endocrine complaints and Reports as per HPI Hematologic/Lymphatic: Hematologic/Lymphatic: Reports no additional hematologic/lymphatic complaints and Reports as per HPI Allergic/Immunologic: Allergic/Immunologic: Reports no additional allergic/immunologic complaints and Reports as per HPI Exam Narrative: PHYSICAL EXAMINATION: GENERAL: Alert, oriented, no acute distress MENTAL STATUS: affect appropriate to mood EYES: Extraocular movements intact, no pallor EARS: External ears appear normal, hearing grossly normal NOSE: Normal and patent, no discharge MOUTH: Mucous membranes moist, tongue normal NECK: Supple, no JVD CHEST: Good respiratory effort, clear to auscultation HEART: Normal rate, regular rhythm, normal S1 and S2, soft systolic murmur ABDOMEN: Soft, nontender NEUROLOGICAL: Alert, oriented, normal speech, no gross motor deficits
--- NOTE | 2021-07-02 13:20 | PM.DS ---
DS: Admitting Diagnosis Admitting Diagnosis Shortness of breath DS: Discharge Diagnosis Discharge Diagnosis (1) Non-ST elevation [place] (NSTEMI): Code(s): I21.4 - Non-ST elevation (NSTEMI) myocardial infarction Status: Acute (2) CAD (coronary artery disease): Code(s): I25.10 - Atherosclerotic heart disease of [place] coronary artery without angina pectoris Status: Acute (3) Hypertension: Code(s): I10 - Essential (primary) hypertension Status: Acute (4) Hyperlipidemia: Code(s): E78.5 - Hyperlipidemia, unspecified Status: Acute DS: Summary Hospital Course Reason for hospitalization: 75yo male with HTN here for SOB and CP. Please see H&P for details. Hospital Course: Patient presents with progressively worsening exertional shortness of breath worrisome for underlying coronary artery disease. Troponin elevated to 1.[address] elevation IA. Initial EKG showing minimal Q waves in lateral leads. CXR was clear. Echo showing EF 70% with grade I diastolic dysfunction and no wall motion abnormalities. WHe was started on ASA, Metoprolol and Lovenox and admitted to IMU. Cardiology was consulted. LDL 224 and Chol 323. Atorvastatin started. Glucose mildly elevated on admission but A1c was 5.8. D-dimer was negative. Was seen in the ED on 06/30 for SOB and noted to be wheezing and started on Prednisone; wheezing not present so steroids not continued. BP elevated on admission but better controlled now. Patient underwent LHC 07/01 showing multivessel CAD. He underwent balloon angioplasty and stenting of high-grade stenosis in the proximal-mid LAD and stenting of proximal left circumflex artery. He tolerated this procedure well. Please see cath report for details. Continue aggressive medial management. Patient educated about the importance of taking Brilinta and ASA and the risk of not doing so including AMI and even . Discussed the benefits of leading a healthy lifestyle. All questions answered. He overall did well and was able to be discharged home on 07/02/21 Status at Discharge Cognitive/behavioral status at discharge: stable Time Spent with Patient Time attestation: Total time spent providing and/or coordinating discharge services: 31 minutes Time spent: Greater than 30 minutes Specific discharge activities: Patient Education. Discussed with Cardiology. Exam Narrative: AF 98.0 141/77 82 20 100% ra Gen - NARD Chest - CTA bilaterally, nml RR CV - RRR S1/S2; Tele showing no significant dysrhythmias Abd - Soft, NT/ND, Positive BS Ext - No pedal edema Neuro - Alert and oriented. Nonfocal exam. Psych - Nml mood and affect Skin - Warm and dry DS: Data Data Completed and Pending Labs on day of discharge: Labs from last 24 hours 07/02/21 05:14 Sodium 139 Potassium 4.0 Chloride 102 Carbon Dioxide 28 Anion Gap 9 BUN 29 H Creatinine 1.10 Estim Creat Clear Calc 57 Estimated GFR > 60 Glucose 100 Calcium 8.9 Discharge Plan Discharge Attending physician on discharge: Monty Arias Consulting providers: Mikayla Singleton Discharging Clinician: Monty Arias Anticipated Discharge Date/Time: 07/02/21 13:28 Patient Disposition: Home, Self-Care Activity: other - see discharge instructions Diet: heart healthy Wound Care Instructions: other - see discharge instructions Discharge Instructions: [facility] [address] [place] [id number]
== END 2021-07-02 15:10 | disposition home or self-care (01) | DRG 247 ==
LOC: ANHED 07-01 00:22 → ANHIMU 07-01 01:17
PROVIDERS: Emergency Medicine; Internal Medicine Cardiovascular Disease; Admitting Provider Internal Medicine; Emergency Provider Emergency Medicine; PCP Physician Assistant; Visit Provider Internal Medicine
PROC: 4A023N7 Measurement of Cardiac Sampling and Pressure, Left Heart, Percutaneous Approach (ICD-10-PCS; CPT 93452; principal; 2021-07-01 10:00)
PROC: 027135Z Dilation of Coronary Artery, Two Arteries with Two Drug-eluting Intraluminal Devices, Percutaneous Approach (ICD-10-PCS; 2021-07-01 10:00)
PROC: 027135Z Dilation of Coronary Artery, Two Arteries with Two Drug-eluting Intraluminal Devices, Percutaneous Approach (ICD-10-PCS; CPT 92928; 2021-07-01 10:00)
PROC: 027135Z Dilation of Coronary Artery, Two Arteries with Two Drug-eluting Intraluminal Devices, Percutaneous Approach (ICD-10-PCS; 2021-07-01 10:00)
DX: I21.4 Non-ST elevation (NSTEMI) myocardial infarction (principal); I25.10 Atherosclerotic heart disease of native coronary artery without angina pectoris; I10 Essential (primary) hypertension; E78.5 Hyperlipidemia, unspecified; R77.8 Other specified abnormalities of plasma proteins; Z83.2 Family history of diseases of the blood and blood-forming organs and certain disorders involving the immune mechanism; Z79.899 Other long term (current) drug therapy
CPT/HCPCS: 36415; 71046; 80048; 80061; 83036; 83880; 84484; 85025; 85380; 85610; 85730; 93005; 93458; 94640; 96372; 99284; 99285; A9270; C1725; C1760; C1769; C1874; C1887; C1894; C8929; C9600; G0269; G0378; J0583; J1644; J1650; J2250; J3010; J7030; J7040; J7512; Q9957

== ENCOUNTER 2021-10-23 09:45 | Outpatient (RCR) | payer OTHER, SELFPAY ==
[2021-08-01 11:25] VITALS: BP 140/70; PULSE 65; RESP 16; O2SAT 97
[2021-08-01 11:33] VITALS: PULSE 65
== END 2021-10-23 19:30 | disposition home or self-care (01) ==
LOC: ANHCPREHAB 09:45
PROVIDERS: PCP Physician Assistant; Visit Provider Internal Medicine Cardiovascular Disease
DX: I25.2 Old myocardial infarction (principal)
CPT/HCPCS: 93798